=== PATIENT | male | born 1970 | race Caucasian/White ===

== ENCOUNTER 2023-09-20 07:59 | Outpatient (OUT) | payer MEDICARE, SELFPAY ==
[2023-09-20 09:19] LABS: Prostate Specific Antigen Dx 3.24 ng/mL (<=4.00)
== END 2023-09-20 08:00 | disposition home or self-care (01) ==
PROVIDERS: Visit Provider Urology
DX: R97.20 Elevated prostate specific antigen [PSA] (principal)
CPT/HCPCS: 36415; 84153